=== PATIENT | male | born 1975 | race Caucasian/White ===

== ENCOUNTER 2021-07-07 14:48 | Emergency (ER) | payer OTHER ==
[~2021-07-07] VITALS: Ht 177.8 cm; Wt 72.6 kg
[~2021-07-07 14:48] MED LIST: ASPI325; CEPH500 PO; NAPR500 PO; NAPR550 PO; RXNAPNA550 PO
[2021-07-07] MEDS ORDERED: OXYC5 PO (19:01)
== END 2021-07-07 19:09 | disposition home or self-care (01) ==
LOC: ER 14:48
DX: S30.0XXA Contusion of lower back and pelvis, initial encounter (principal); W10.9XXA Fall (on) (from) unspecified stairs and steps, initial encounter
CPT/HCPCS: 72100; A9270

== ENCOUNTER 2021-07-19 06:39 | Day surgery (SDC) | payer OTHER ==
[~2021-07-19] VITALS: Ht 177.8 cm; Wt 71.2 kg
[~2021-07-19 06:39] MED LIST changes: +OXYC5 PO
--- NOTE | 2021-07-19 08:22 | NUR ---
07/19/21 0822 Racquel Nunn 0810 TIME OUT AND SITE CHECK DONE WITH DR CUENCA FOR ISB.
== END 2021-07-19 12:35 | disposition home or self-care (01) ==
LOC: ORSCSDS 06:39
PROVIDERS: Orthopaedic Surgery
PROC: 0RRK0JZ Replacement of Left Shoulder Joint with Synthetic Substitute, Open Approach (ICD-10-PCS; principal; 2021-07-19 08:30)
DX: M19.012 Primary osteoarthritis, left shoulder (principal); Z87.891 Personal history of nicotine dependence; K21.9 Gastro-esophageal reflux disease without esophagitis; Z79.899 Other long term (current) drug therapy
CPT/HCPCS: 73020; A9270; C1713; C1776; J0696; J1100; J1885; J2250; J2270; J2405; J2704; J2710; J3010; J3370; J7050; J7120